=== PATIENT | male | born 1970 | race African-American/Black ===

== ENCOUNTER 2019-07-15 11:52 | Emergency (ER) | payer BC, OTHER ==
--- NOTE | 2019-07-15 13:06 | ED ---
Bite Injury/Animal - HPI Summary HPI Summary: 48 year old male presents with bee sting to her left middle finger today. He states has never gotten stung before. He noticed swelling and redness to the finger. This happened 2 hours ago. He denies any chest pressures or shortness of breath. He states that the swelling has been going down. denies any bowel pain. No nausea vomiting. No difficulty swallowing. He is diabetic. He states that he is feeling better. Patient does not want steriods today. - History of Current Complaint Chief Complaint: EDGeneral Stated Complaint: BEE STING PER PT Time Seen by Provider: 07/15/19 12:58 Pain Intensity: 5 - Allergies/Home Medications Allergies/Adverse Reactions: Allergies Allergy/AdvReac Type Severity Reaction Status Date / Time No Known Allergies Allergy Verified 02/05/19 10:41 PMH/Surg Hx/FS Hx/Imm Hx Endocrine/Hematology History: Reports: Hx Diabetes - MEDICATED Denies: Hx Thyroid Disease Cardiovascular History: Reports: Hx Hypertension - MEDICATED Denies: Hx Hypercholesterolemia, Hx Pacemaker/ICD, Hx Peripheral Vascular Disease Musculoskeletal History: Denies: Hx Arthritis, Hx Osteoporosis Sensory History: Denies: Hx Cataracts, Hx Contacts or Glasses, Hx Glaucoma, Hx Hearing Aid Opthamlomology History: Denies: Hx Cataracts, Hx Contacts or Glasses, Hx Glaucoma Neurological History: Denies: Hx Seizures Psychiatric History: Denies: Hx Anxiety, Hx Depression, Hx Panic Disorder - Surgical History Surgery Procedure, Year, and Place: Rotator Cuff x2 left shoulder Infectious Disease History: No Infectious Disease History: Denies: Traveled Outside the [place] in Last 30 Days - Family History Known Family History: Positive: Diabetes - Social History Alcohol Use: None Hx Substance Use: No Substance Use Type: Reports: None Hx Tobacco Use: No Smoking Status (MU): Never Smoked Tobacco Review of Systems Negative: Fever Negative: Chest Pain Negative: Shortness Of Breath Positive: Other - bug bite left middle finger All Other Systems Reviewed And Are Negative: Yes Physical Exam Triage Information Reviewed: Yes Vital Signs On Initial Exam: Initial Vitals Temp Pulse Resp BP Pulse Ox 98.2 F 93 14 155/87 98 07/15/19 11:55 07/15/19 11:55 07/15/19 11:55 07/15/19 11:55 07/15/19 11:55 Vital Signs Reviewed: Yes Appearance: Positive: Well-Appearing Skin: Positive: Warm, Dry, Other - erythema to left middle finger, no urticaria Head/Face: Positive: Normal Head/Face Inspection Eyes: Positive: Normal, EOMI, LICHA, Conjunctiva Clear ENT: Positive: Normal ENT inspection, Pharynx normal, TMs normal Respiratory/Lung Sounds: Positive: Clear to Auscultation, Breath Sounds Present Cardiovascular: Positive: Normal, RRR Abdomen Description: Positive: Nontender, Soft Bowel Sounds: Positive: Present Musculoskeletal: Positive: Normal Neurological: Positive: Normal Diagnostics - Vital Signs Vital Signs Temp Pulse Resp BP Pulse Ox 07/15/19 11:55 98.2 F 93 14 155/87 98 - Laboratory Lab Statement: Any lab studies that have been ordered have been reviewed, and results considered in the medical decision making process. Bite Injury Course/Dx - Course Course Of Treatment: 48 year old male presents with bee sting to her left middle finger today. He states has never gotten stung before. He noticed swelling and redness to the finger. This happened 2 hours ago. He denies any chest pressures or shortness of breath. He states that the swelling has been going down. denies any bowel pain. No nausea vomiting. No difficulty swallowing. He is diabetic. He states that he is feeling better. Patient does not want steriods today. on exam has mild erythema to left middle finger. We'll give dose of benadryl discussed will not do steroids at this time as is feeling better and as is diabetic. told continue Benadryl and Pepcid. Patient understands and agrees plan. - Diagnoses Differential Diagnosis/HQI/PQRI: Positive: Other - allergic reaction, anaphlyaxis, urticaria Provider Diagnosis: Bee sting Discharge - Sign-Out/Discharge Documenting (check all that apply): Patient Departure Patient Received Moderate/Deep Sedation with Procedure: No - Discharge Plan Condition: Good Disposition: HOME Patient Education Materials: Insect Bite or Sting (ED) Referrals: Ramon Chatterjee MD [Primary Care Provider] - Additional Instructions: Take Benadryl every 6 hours take Pepcid twice a day ice Return to ED if develop any new or worsening symptoms - Billing Disposition and Condition Condition: GOOD Disposition: Home
[2019-07-15] MEDS ORDERED: diPHENhydraMINE PO* 25 MG PO ONE (13:10)
[2019-07-15 13:48] VITALS: BP 0/0
== END 2019-07-15 13:46 | disposition home or self-care (01) ==
LOC: ED 11:52
DX: T63.441A Toxic effect of venom of bees, accidental (unintentional), initial encounter (principal); Y92.9 Unspecified place or not applicable; E11.9 Type 2 diabetes mellitus without complications; I10 Essential (primary) hypertension; Z79.899 Other long term (current) drug therapy
CPT/HCPCS: 99282; A9270-GY